=== PATIENT | female | born 1970 | race Caucasian/White ===

== ENCOUNTER → 2018-05-14 | Outpatient (REF) | payer MEDICARE, MEDICAID ==
[2018-05-14 13:37] LABS: BASO # 0.1 10^3/uL (0.0-0.2); BASO % 1.3 % (0.0-1.0); EOS # 0.3 10^3/uL (0.0-0.50); EOS % 4.5 % (0.0-3.0); HEMATOCRIT 42.7 % (36.0-47.0); HEMOGLOBIN 13.9 g/dl (12.0-15.5); LYMPH # 1.8 10^3/uL (1.5-4.5); LYMPH % 24.1 % (24.0-44.0); MEAN CORPUSCULAR HEMOGLOBIN 28.9 pg (27.0-33.0); MEAN CORPUSCULAR HGB CONC 32.6 g/dl (32.0-36.5); MEAN CORPUSCULAR VOLUME 88.8 fl (80.0-96.0); MONO # 0.6 10^3/uL (0.0-0.8); MONO % 8.1 % (0.0-5.0); NEUTROPHILS # 4.7 10^3/uL (1.8-7.7); NEUTROPHILS % 61.7 % (36.0-66.0); PLATELET COUNT, AUTOMATED 237 10^3/uL (150-450); RED BLOOD COUNT 4.81 10^6/uL (4.00-5.40); WHITE BLOOD COUNT 7.5 10^3/uL (4.0-10.0)
[2018-05-14 14:01] LABS: ERYTHROCYTE SEDIMENTATION RATE 33 mm/hr (0-20)
[2018-05-14 14:13] LABS: ALBUMIN 3.6 GM/DL (3.2-5.2); ALT/SGPT 29 U/L (12-78); BILIRUBIN,TOTAL 0.2 MG/DL (0.2-1.0); BLOOD UREA NITROGEN 19 MG/DL (7-18); CALCIUM LEVEL 9.2 MG/DL (8.5-10.1); CARBON DIOXIDE LEVEL 26 MEQ/L (21-32); CHLORIDE LEVEL 106 MEQ/L (98-107); CREATININE FOR GFR 0.95 MG/DL (0.55-1.30); GLOMERULAR FILTRATION RATE > 60.0 (>58); GLUCOSE, FASTING 92 MG/DL (70-100); POTASSIUM SERUM 4.7 MEQ/L (3.5-5.1); RHEUMATOID FACTOR QUANT < 10.0 IU/ML (<15.0); SODIUM LEVEL 142 MEQ/L (136-145); TOTAL PROTEIN 7.8 GM/DL (6.4-8.2)
[2018-05-15 15:02] LABS: ANTINUCLEAR ANTIBODIES DIRECT Negative (Negative)
== END ==
LOC: M LABNEURO 08:31
PROVIDERS: ATTEND Psychiatry & Neurology Neurology
DX: R55 Syncope and collapse (principal)

== ENCOUNTER 2019-02-14 21:58 | Emergency (ER) | payer MEDICARE, MEDICAID ==
[~2019-02-14] VITALS: Ht 177.8 cm; Wt 102.2 kg
[2019-02-14 23:01] LABS: BASO # 0.1 10^3/uL (0.0-0.2); EOS # 0.3 10^3/uL (0.0-0.5); EOS % 2.8 % (0.0-3.0); HEMATOCRIT 39.4 % (36.0-47.0); HEMOGLOBIN 12.9 g/dl (12.0-15.5); LYMPH # 2.1 10^3/uL (1.5-5.0); LYMPH % 23.6 % (24.0-44.0); MEAN CORPUSCULAR HEMOGLOBIN 29.9 pg (27.0-33.0); MEAN CORPUSCULAR HGB CONC 32.7 g/dl (32.0-36.5); MEAN CORPUSCULAR VOLUME 91.4 fl (80.0-96.0); MONO # 0.8 10^3/uL (0.0-0.8); MONO % 8.6 % (0.0-5.0); NEUTROPHILS # 5.7 10^3/uL (1.5-8.5); NEUTROPHILS % 63.7 % (36.0-66.0); PLATELET COUNT, AUTOMATED 230 10^3/uL (150-450); RED BLOOD COUNT 4.31 10^6/uL (4.00-5.40)
[2019-02-14 23:15] LABS: BLOOD UREA NITROGEN 16 MG/DL (7-18); CALCIUM LEVEL 8.5 MG/DL (8.5-10.1); CARBON DIOXIDE LEVEL 27 MEQ/L (21-32); CHLORIDE LEVEL 109 MEQ/L (98-107); CK-MB VALUE MASS < 1.0 NG/ML (<3.6); CPK CREATINE PHOSPHOKINASE 135 U/L (26-192); CREATININE FOR GFR 1.07 MG/DL (0.55-1.30); GLOMERULAR FILTRATION RATE 58.5 (>58); GLUCOSE, FASTING 93 MG/DL (70-100); MB/CK RELATIVE INDEX 0.74 (< OR =4); POTASSIUM SERUM 3.7 MEQ/L (3.5-5.1); SODIUM LEVEL 140 MEQ/L (136-145); TROPONIN I < 0.02 NG/ML (< 0.10)
[2019-02-14] MEDS ORDERED: CLAR10CA3 PO (23:18)
[2019-02-14] MEDS ORDERED: LEVO25TA5 PO (23:18)
[2019-02-14] MEDS ORDERED: PANT40TA3 PO (23:18)
[2019-02-14] MEDS ORDERED: METO25TA4 PO (23:18)
[2019-02-14] MEDS ORDERED: IBUP200C25 PO (23:18)
[2019-02-14] MEDS ORDERED: KETOROLAC 30 MG/ML VIAL (J1885) IV ONE (23:45)
[2019-02-15 01:13] LABS: CK-MB VALUE MASS < 1.0 NG/ML (<3.6); CPK CREATINE PHOSPHOKINASE 120 U/L (26-192); MB/CK RELATIVE INDEX 0.83 (< OR =4); TROPONIN I < 0.02 NG/ML (< 0.10)
[2019-02-15 01:45] VITALS: BP 128/70
--- NOTE | 2019-02-15 08:23 | REP ---
Portable chest x-ray: Single view. History: Chest pain. Findings: There is plate-like atelectasis in the left base along the left heart border. The lungs are otherwise clear. Pleural angles are sharp. Heart is not felt to be enlarged. Pulmonary vasculature is not increased. EKG monitoring electrodes are seen. Impression: Linear plate-like atelectasis left base. Otherwise no acute disease. Electronically Signed by Max Mott MD 02/15/2019 08:14 A
--- NOTE | 2019-02-15 19:50 | ECGEPIP ---
[facility] - ED Test Date: 2019-02-14 Pat Name: ZEB WAGNER Department: Room: - Gender: Female Event Marketing Coordinator: : 1970 Requested By: Imtiaz Koehler Order Number: [id number] Reading MD: Marc Rader Measurements Intervals [place] Rate: 59 P: 29 NM: 176 QRS: 12 QRSD: 92 T: 30 QT: 440 QTc: 436 Interpretive Statements SINUS BRADYCARDIA LOW QRS VOLTAGE IN PRECORDIAL LEADS MINIMAL ST DEPRESSION NO PRIOR ECG FOR COMPARISON Electronically Signed on 02-15-2019 19:50:08 EDT by Marc Rader
== END 2019-02-15 02:00 | disposition home or self-care (01) ==
LOC: M ED 21:58
DX: R07.89 Other chest pain (principal); R06.02 Shortness of breath; E07.9 Disorder of thyroid, unspecified; Z79.899 Other long term (current) drug therapy; Z79.890 Hormone replacement therapy
CPT/HCPCS: 71045; 80048; 82550; 82553; 84484; 85025; 93005; 93041; 94760; 96374; 99285; J1885

== ENCOUNTER → 2019-02-26 | Outpatient (REF) | payer MEDICARE, MEDICAID ==
[~2019-02-26] MED LIST: CLAR10CA3 PO; IBUP200C25 PO; LEVO25TA5 PO; METO25TA4 PO; PANT40TA3 PO
[2019-02-26 13:39] LABS: AMORPHOUS SEDIMENT SMALL (NEGATIVE); APPEARANCE, URINE CLOUDY (CLEAR); BACTERIA, URINE AUTO NEGATIVE (NEGATIVE); BILIRUBIN, URINE AUTO NEGATIVE (NEGATIVE); BLOOD, URINE BLOOD NEGATIVE (NEGATIVE); CALCIUM OXALATE CRYSTALS SMALL; COLOR, URINE YELLOW (YELLOW); GLUCOSE, URINE (UA) AUTO NEGATIVE (NEGATIVE); KETONE, URINE AUTO NEGATIVE (NEGATIVE); LEUKOCYTE ESTERASE, URINE AUTO NEGATIVE (NEGATIVE); MUCUS, URINE SMALL (NEGATIVE); NITRITE, URINE AUTO NEGATIVE (NEGATIVE); PROTEIN, URINE AUTO NEGATIVE (NEGATIVE); RBC, URINE AUTO 1 /HPF (0-3); SPECIFIC GRAVITY URINE AUTO 1.024 (1.002-1.035); SQUAMOUS EPITHELIAL CELL UR AU 10 /HPF (0-6); UROBILINOGEN, URINE AUTO 0.2 mg/dL (0.0-2.0); WBC, URINE AUTO 2 /HPF (0-3)
== END ==
LOC: M SMT 13:01
PROVIDERS: ATTEND Nurse Practitioner Family
DX: R32 Unspecified urinary incontinence (principal); R31.0 Gross hematuria
CPT/HCPCS: 51798; 81001; 87086; 88108; G0463

== ENCOUNTER → 2019-02-28 | Outpatient (CLI) | payer MEDICARE, MEDICAID ==
[~2019-02-28] MED LIST changes: +ISOVUE-370 76% 100ML VIAL (Q9967) As Ordered ONE
--- NOTE | 2019-02-28 17:25 | REP ---
CT ABDOMEN AND PELVIS WITH AND WITHOUT IV CONTRAST: CT abdomen and pelvis was performed prior to and following the intravenous administration of 75 mL Isovue-370. Sagittal and coronal reconstruction images are performed. Visualized lung bases demonstrate mild fibro atelectatic change. No liver mass is seen. Gallbladder is somewhat contracted. Spleen is normal in size with no intrinsic abnormality. Adrenals and pancreas appear unremarkable. There is no pancreatic duct dilatation and there is no evidence of biliary dilatation. The kidneys demonstrate no calculus, hydronephrosis or mass. Ureters are normal in caliber with no intraluminal stone. The urinary bladder demonstrates no stone or filling defect and no evidence of wall thickening. There is no evidence of abdominal aortic aneurysm. There is no adenopathy. There is no free air or free fluid. There is no bowel wall thickening. The patient appears to have a hysterectomy. There is no pelvic mass. The patient has had an appendectomy. Visualized osseous structures are unremarkable. IMPRESSION: Essentially unremarkable CT abdomen and pelvis with and without contrast. No renal, ureteral or bladder calculus and no hydronephrosis. No mass seen involving the kidneys or urinary tract. Electronically Signed by Chandu Steele MD 03/01/2019 11:29 A
== END ==
LOC: M RAD 15:24
PROVIDERS: ATTEND Nurse Practitioner Family
DX: R31.0 Gross hematuria (principal)
CPT/HCPCS: 74178; Q9967

== ENCOUNTER 2019-07-04 22:47 | Emergency (ER) | payer MEDICARE, MEDICAID ==
[~2019-07-04] VITALS: Ht 172.7 cm; Wt 113.6 kg
[~2019-07-04 22:47] MED LIST changes: -ISOVUE-370 76% 100ML VIAL (Q9967) As Ordered ONE
[2019-07-04] MEDS ORDERED: LEVO50TA5 (23:05)
[2019-07-04 23:21] LABS: BASO # 0.1 10^3/uL (0.0-0.2); BASO % 1.3 % (0.0-1.0); EOS # 0.3 10^3/uL (0.0-0.5); EOS % 3.5 % (0.0-3.0); HEMATOCRIT 41.3 % (36.0-47.0); HEMOGLOBIN 13.2 g/dl (12.0-15.5); LYMPH # 2.1 10^3/uL (1.5-5.0); LYMPH % 28.1 % (24.0-44.0); MEAN CORPUSCULAR HEMOGLOBIN 28.9 pg (27.0-33.0); MEAN CORPUSCULAR VOLUME 90.4 fl (80.0-96.0); MONO # 0.7 10^3/uL (0.0-0.8); MONO % 9.7 % (0.0-5.0); NEUTROPHILS # 4.3 10^3/uL (1.5-8.5); NEUTROPHILS % 56.9 % (36.0-66.0); PLATELET COUNT, AUTOMATED 242 10^3/uL (150-450); RED BLOOD COUNT 4.57 10^6/uL (4.00-5.40); WHITE BLOOD COUNT 7.6 10^3/uL (4.0-10.0)
[2019-07-04] MEDS ORDERED: KETOROLAC 30 MG/ML VIAL (J1885) As Ordered ONE (23:32)
[2019-07-04] MEDS ORDERED: KETOROLAC 30 MG/ML VIAL (J1885) IV ONE (23:45)
[2019-07-05 00:01] LABS: BLOOD UREA NITROGEN 20 MG/DL (7-18); CALCIUM LEVEL 8.9 MG/DL (8.5-10.1); CARBON DIOXIDE LEVEL 28 MEQ/L (21-32); CHLORIDE LEVEL 110 MEQ/L (98-107); CK-MB VALUE MASS < 1.0 NG/ML (<3.6); CPK CREATINE PHOSPHOKINASE 91 U/L (26-192); CREATININE FOR GFR 0.99 MG/DL (0.55-1.30); GLOMERULAR FILTRATION RATE > 60.0 (>58); GLUCOSE, FASTING 86 MG/DL (70-100); NT-PRO BNP 43 PG/ML (<125); SODIUM LEVEL 142 MEQ/L (136-145); TROPONIN I < 0.02 NG/ML (< 0.10)
[2019-07-05] MEDS ORDERED: MORPHINE 4 MG/ML 1ML VIAL/SYRINGE (J2270) As Ordered ONE (00:36)
[2019-07-05] MEDS: MORPHINE 4 MG/ML 1ML VIAL/SYRINGE (J2270) IV PRN ×2 (00:43→02:40)
[2019-07-05 02:57] LABS: CK-MB VALUE MASS < 1.0 NG/ML (<3.6); CPK CREATINE PHOSPHOKINASE 77 U/L (26-192); TROPONIN I < 0.02 NG/ML (< 0.10)
[2019-07-05 03:00] VITALS: BP 131/81
[2019-07-05] MEDS ORDERED: NAPR-837 PO (03:17)
--- NOTE | 2019-07-05 05:39 | ECGEPIP ---
[facility] - ED Test Date: 2019-07-04 Pat Name: ZEB WAGNER Department: Room: - Gender: Female Director College: [employer] : 1970 Requested By: CONSTANTINO Ballesteros Order Number: [id number] Reading MD: Imtiaz Mcgraw Measurements Intervals [place] Rate: 62 P: 72 SD: 186 QRS: 37 QRSD: 97 T: 43 QT: 426 QTc: 435 Interpretive Statements SINUS RHYTHM NSTTW ABNORMALITIES SIMILAR TO 02/14/19 Electronically Signed on 07-05-2019 5:39:27 EST by Imtiaz Mcgraw
--- NOTE | 2019-07-05 05:41 | ECGEPIP ---
[facility] - ED Test Date: 2019-07-05 Pat Name: ZEB WAGNER Department: Room: - Gender: Female Order Processing Manager: FARHAN : 1970 Requested By: CONSTANTINO Ballesteros Order Number: [id number] Reading MD: Imtiaz Mcgraw Measurements Intervals [place] Rate: 51 P: 58 [place]: 187 QRS: 0 QRSD: 100 T: -14 QT: 452 QTc: 418 Interpretive Statements SINUS BRADYCARDIA LOW QRS VOLTAGE IN PRECORDIAL LEADS NONSPECIFIC ST & T-WAVE ABNORMALITY SIMILAR TO 07/04/19 Electronically Signed on 07-05-2019 5:40:52 EST by Imtiaz Mcgraw
--- NOTE | 2019-07-05 08:35 | REP ---
Portable chest x-ray: Single view. History: Chest pain. Comparison study: February 14, 2019. Findings: The lungs are well inflated and clear. Pleural angles are sharp. Heart size is normal. There is minimal linear fibrosis in the left base which is unchanged from comparison study. Pulmonary vasculature is not increased. No significant bony abnormality. Impression: No active disease. Electronically Signed by Max Mott MD 07/05/2019 08:27 A
== END 2019-07-05 03:31 | disposition home or self-care (01) ==
LOC: M ED 22:47
DX: R07.89 Other chest pain (principal); I10 Essential (primary) hypertension; R56.9 Unspecified convulsions; Z79.899 Other long term (current) drug therapy
CPT/HCPCS: 71045; 80048; 82550; 82553; 83880; 84484; 85025; 93005; 93041; 94760; 96374; 96375; 96376; 99285; J1885; J2270

== ENCOUNTER → 2020-08-11 | Outpatient (CLI) | payer MEDICARE, MEDICAID ==
[~2020-08-11] MED LIST changes: +LEVO50TA5; +NAPR-837 PO; +PANT40TA29 PO; -PANT40TA3 PO
--- NOTE | 2020-08-12 17:04 | SLEEPHOME ---
DATE: 08/11/2020 ORDERED BY: Dr. Cm Cervantes Diagnostic home sleep testing was performed due to concern for the obstructive sleep apnea syndrome. For testing, a nocturnal T3 respiratory monitoring device was used. Continuous record was made of pulse, oxygen saturation, air flow, chest and abdominal strain, and body position. There was 11 hours and 59 minutes of data reviewed. There was 8 hours and 27 minutes marked as time in bed. During the interval marked time in bed, there were 78 respiratory events identified of 10 seconds in duration or greater for a respiratory event index of 9.2. The events were primarily obstructive, but 7 mixed and central apneas were seen. Baseline pulse rate 64. Pulse rate ranged 50-94. Baseline saturation 92%. Saturations fell to 68%, and testing was performed in both the supine and nonsupine positions. IMPRESSION: Abnormal home sleep testing with repetitive respiratory events and oxygen desaturations to 68% with a respiratory event index of 9.2 is consistent with the obstructive sleep apnea syndrome. RECOMMENDATION: The patient should be encouraged to undergo formal sleep evaluation.
== END ==
LOC: M SLEEP HO 09:35
PROVIDERS: ATTEND Internal Medicine Cardiovascular Disease
DX: G47.30 Sleep apnea, unspecified (principal)

== ENCOUNTER → 2023-06-25 | Outpatient (CLI) | payer MEDICARE, MEDICAID | LOC: M SLEEP 20:00 | PROVIDERS: ATTEND Physician Assistant | DX: R06.83 Snoring (principal) ==

== ENCOUNTER → 2025-01-27 | Outpatient (REF) | LOC: M CFLAB 12:53 | DX: Z01.89 Encounter for other specified special examinations (principal) ==